=== PATIENT | female | born 1995 | race Caucasian/White ===

== ENCOUNTER → 2019-10-27 10:41 | Outpatient (BNVA) | payer SELFPAY | PROVIDERS: Family Provider Family Medicine; Visit Provider Family Medicine | DX: R39.9 Unspecified symptoms and signs involving the genitourinary system (principal); N30.91 Cystitis, unspecified with hematuria | CPT/HCPCS: 81003 ==

== ENCOUNTER → 2020-01-31 16:46 | Outpatient (BNVA) | payer SELFPAY | PROVIDERS: Family Provider Family Medicine; Visit Provider Nurse Practitioner Family | DX: R10.31 Right lower quadrant pain (principal); R10.2 Pelvic and perineal pain | CPT/HCPCS: 81000; 81001; 81025; 87491; 87591; 87661 ==

== ENCOUNTER → 2020-02-08 11:17 | Outpatient (BNVA) | payer SELFPAY | PROVIDERS: Family Provider Family Medicine; Visit Provider Nurse Practitioner | DX: A74.9 Chlamydial infection, unspecified (principal); T63.461D Toxic effect of venom of wasps, accidental (unintentional), subsequent encounter; Z20.2 Contact with and (suspected) exposure to infections with a predominantly sexual mode of transmission; N39.0 Urinary tract infection, site not specified | CPT/HCPCS: 81003; 87491; 87591 ==

== ENCOUNTER 2020-05-23 08:48 | Emergency (ER) | payer SELFPAY ==
[2020-05-23 09:02] VITALS: BP 112/74; PULSE 80; RESP 16; TEMP 36.6; O2SAT 97; BMI 22.8
[2020-05-23 09:06] VITALS: PULSE 79; RESP 16; O2SAT 96
--- NOTE | 2020-05-23 09:18 | PC.NURSE ---
Urine collected, labeled and sent to lab
[2020-05-23 09:22] LABS: HCG Qualitative Urine. Negative (Negative)
--- NOTE | 2020-05-23 09:25 | PC.NURSE ---
Pt placed in VF. Dr Gruber to see pt.
--- NOTE | 2020-05-23 09:38 | W.ED.GENADLT ---
HPI - General Adult General: Chief complaint: General Medical Stated complaint: POSS PREG/WANTS CHECKED Time Seen by Provider: 05/23/20 09:38 History of Present Illness: HPI narrative: 24-year-old female presents emergency room after having done multiple tests at home she got varying results and wants to come in to the emergency room to have a test done. She is also requesting ultrasound to confirm that she is or is not . She denies any abdominal pain or pelvic pain she just completed her period. She denies any fever sweats chills or respiratory symptoms. PFS ED PFSH: Medical History (Updated 05/23/20 @ 09:40 by Oliver Gruber DO) Wasp sting Social History Smoking and tobacco status: never smoked Alcohol intake: never Female Reproductive History: Date of last menstrual period: 05/18/20 Course Vital Signs: Vital signs: Vital Signs Temperature 97.8 F 05/23/20 09:02 Pulse Rate 79 05/23/20 09:06 Respiratory Rate 16 05/23/20 09:06 Blood Pressure 112/74 05/23/20 09:02 Pulse Oximetry 96 05/23/20 09:06 MDM - General Adult MDM Narrative: Medical decision making narrative: EGD is negative. Would not recommend an ultrasound as without a positive test and no pelvic symptoms whatsoever ultrasound will not tell us of anything significant. Recommend that she follow-up with her primary care doctor should she did not have a primary care doctor will case investigator get her set up with someone. Lab Data: Labs: Lab Results 05/23/20 Range/Units 09:12 HCG, Qual Negative (Negative) Discharge Plan Discharge Patient Disposition: Home Clinical Impression: Normal exam Condition: Stable Prescriptions: No Action lidocaine HCl [Xylocaine] 10 mg/mL (1 %) solution 1 ml IM ONCE Qty: 1 RF: 0 prednisone 10 mg tablet 30 mg PO DAILY 5 Days Qty: 15 RF: 0 norethindrone (contraceptive) [Melissa] 0.35 mg tablet 0.35 mg PO DAILY RF: 0 doxycycline hyclate 100 mg capsule 100 mg PO BID 7 Days Qty: 14 RF: 0 Discharge Orders: Discharge Order (Routine); Ordered 05/23/20 Ordered By: Oliver L Horstman Activity Restrictions/Additional Instructions: Case management will call to help you arrange a new primary care physician. Coding Level of Care Code ED Coin Wrapping Machine Operator for Mercedes Matthews
--- NOTE | 2020-05-23 14:14 | DCPLANNER ---
manager animal had message to speak with patient about getting established with a primary care physician. manager animal spoke with patient, and she stated that she does not have a primary care physician and that she does not have a physician, and does not have any insurance at this time. manager animal mailed patient both of the vice president financial applications to fill out and turn in. manager animal also sent patient director of casework business card, so that when patient wants to schedule a follow up appointment, that lead case manager will be happy to set patient up with a primary care.
== END 2020-05-23 09:47 | disposition home or self-care (01) ==
LOC: ER 09:43
PROVIDERS: Emergency Provider Family Medicine; Family Provider Family Medicine
DX: Z32.02 Encounter for pregnancy test, result negative (principal)
CPT/HCPCS: 12345; 81025; 99282

== ENCOUNTER → 2020-06-29 13:42 | Outpatient (BNVA) | payer MEDICAID, SELFPAY | PROVIDERS: Family Provider Family Medicine; Visit Provider Nurse Practitioner | DX: Z34.90 Encounter for supervision of normal pregnancy, unspecified, unspecified trimester (principal) | CPT/HCPCS: 81025 ==

== ENCOUNTER 2020-08-26 17:58 | Emergency (ER) | payer BC, MEDICAID, SELFPAY ==
[2020-08-26] VITALS (7 sets, daily range): BP systolic 98–113; BP diastolic 59–74; PULSE 84–118; RESP 15–16; TEMP 36.7; O2SAT 96–100; BMI 22.4
--- NOTE | 2020-08-26 18:56 | CTR_ITS ---
PROCEDURE INFORMATION: Exam: CT Head Without Contrast Exam date and time: 08/26/2020 7:01 PM Age: 25 years old Clinical indication: Pain; Headache not specified; Patient HX: 15 wks preg C/O occipital ECHEVARRIA x 2 days TECHNIQUE: Imaging protocol: Computed tomography of the head without contrast. Radiation optimization: All CT scans at this facility use at least one of these dose optimization techniques: automated exposure control; mA and/or kV adjustment per patient size (includes targeted exams where dose is matched to clinical indication); or iterative reconstruction. COMPARISON: No relevant prior studies available. RADIATION DOSE METRICS: Total DLP (mGy-cm): 692.06 FINDINGS: Brain: Unremarkable. No hemorrhage. No significant white matter disease. No edema. Cerebral ventricles: No ventriculomegaly. Bones/joints: Unremarkable. No acute fracture. Paranasal sinuses: Visualized sinuses are unremarkable. No fluid levels. Mastoid air cells: Unremarkable as visualized. No mastoid effusion. Soft tissues: Unremarkable. CT/CT head wo con* [id number] IMPRESSION: No acute intracranial abnormality demonstrated. Radiation Dose CTDIVOL = (mGy): DLP = 692.06 (mGy-cm)
[2020-08-26 19:10] LABS: Basophils % 0.4 %; Eosinophils % 0.4 %; Hematocrit 35.1 % (37.0-47.0); Hemoglobin 11.6 g/dL (11.5-15.3); Lymphocytes # 1.9 10^3/uL (0.8-4.8); Lymphocytes % 16.5 %; Mean Corpuscular Hemoglobin 28.2 pg (28.0-34.0); Mean Corpuscular Volume 85.2 fL (81-99); Mean Platelet Volume 10.4 fL (7.4-10.4); Monocytes # 0.6 10^3/uL (0.2-0.9); Neutrophils # 8.74 10^3/uL (1.8-7.7); Neutrophils % 77.3 %; Nucleated Red Blood Cells % 0 %; Platelet Count 208 10^3/cmm (130-400); Red Blood Count 4.12 10^6/uL (4.1-5.3); Red Cell Distribution Width 12.5 % (12.1-15.1); White Blood Count 11.3 10^3/uL (4.0-10.0)
[2020-08-26 19:34] LABS: Procalcitonin 0.03 ng/mL (0-0.5)
[2020-08-26] MEDS: metoclopramide 5 mg/mL SDV 2 mL 10 MG IVP (19:35)
[2020-08-26] MEDS: ondansetron 2 mg/ML SDV 2 mL 4 MG IVP (19:35)
[2020-08-26] MEDS: fentaNYL 50 mcg/mL INJ 2mL IVP (19:36)
[2020-08-26] MEDS: diphenhydrAMINE 50 mg/mL SDV 1mL 25 MG IVP (19:36)
[2020-08-26] MEDS: sodium chloride 0.9% 1,000 ML 999 ML IV ×2 (19:37→20:47)
[2020-08-26 19:58] LABS: Alanine Aminotransferase 9 U/L (0-33); Albumin Level 3.6 g/dL (3.5-5.2); Alkaline Phosphatase 45 IU/L (35-105); Anion Gap 13.6 (5-19); Aspartate Amino Transferase 10 U/L (0-32); Blood Urea Nitrogen 9 mg/dL (6-20); C Reactive Protein 3.8 mg/L (0.0-4.9); Calcium 8.8 mg/dL (8.5-10.5); Carbon Dioxide 23 mmol/L (22-29); Chloride 104 mmol/L (98-107); Globulin 3.2 g/dL (1.3-4.6); Glomerular Filtration Rate 194.5 mL/min (90-130); Glucose 81 mg/dL (65-115); Lipase 15 U/L (13-60); Osmolality Calculated 282 mOsm/kg (285-295); Potassium 3.6 mmol/L (3.5-5.1); Sodium 137 mmol/L (136-145); Total Bilirubin 0.2 mg/dL (0.15-1.2); Total Protein 6.8 g/dL (6.6-8.7)
[2020-08-26 20:09] LABS: Bilirubin Urine Neg (Negative); Blood Urine Neg (Negative); Glucose Urine UA Norm (Normal); Ketones Urine 1+ (Negative); Nitrate Urine Negative (Negative); Protein Urine Neg (Negative); Specific Gravity, Urine 1.025 (1.005-1.030); Urine Appearance SL Hazy (CLEAR); Urine Color Yellow (Yellow); Urobilinogen Urine Norm (Negative); pH Urine 5 (5-7)
[2020-08-26 20:10] LABS: Add Urine Microscopic? YES; Leukocyte Esterase Urine 1+ (Negative)
[2020-08-26 20:13] LABS: RBC Urine 0-4 /hpf (0-2); Squamous Epithelial Cell Urine 55-80 /hpf (0-5); WBC Urine 15-25 /hpf (0-5)
[2020-08-26 20:14] LABS: Add Urine Culture? No; Bacteria Urine 2+ /hpf
--- NOTE | 2020-08-26 21:05 | W.ED.NAVMDI ---
HPI - Nausea/Vomiting/Diarrhea General: Chief complaint: Nausea/Vomiting/Diarrhea Stated complaint: 15wks preg/nausea/headache Time Seen by Provider: 08/26/20 18:22 History of Present Illness: HPI Narrative: 25-year-old female, at 13 weeks, presents with vomiting with nausea and headache for the past day or so. She does not usually get headaches. She is not been holding down water or crackers. She denies any fever, cough, shortness of breath. Denies any bleeding or discharge. She states that she has been cramping some. MD elicited complaint: nausea, vomiting and other Onset (ago): day(s) Description of vomiting: watery Associated nausea: Yes Associated abdominal pain: No Quality: cramping Relieving factors: none Associated symtoms: Reports dizziness, headache(s) and nausea; Denies chest pain, cough, fevers/chills, palpitations or short of breath Review of Systems Const: Denies: fever(s) or chills Card: Denies: chest pain or palpitations Resp: Denies: dyspnea GI: Reports: nausea and vomiting; Denies: diarrhea Neuro: Reports: headache(s) and dizziness [facility] ED PFSH: Medical History (Updated 08/26/20 @ 22:36 by Lupillo Jennings DO) Wasp sting Social History Smoking and tobacco status: never smoked Alcohol intake: never Female Reproductive History: Date of last menstrual period: 05/18/20 Physical Exam Const: GENERAL APPEARANCE: well developed ORIENTATION/CONSCIOUSNESS: Yes oriented to person, Yes oriented to place and Yes oriented to time HENMT: COMMON NORMALS: normocephalic, external ears normal and Normal external nose present HEAD & SCALP: normocephalic FACE & SINUS: normal facial exam NOSE: Normal external nose present EXTERNAL EAR: Yes external ears normal Eye: COMMON NORMALS: Equal, round and reactive pupils present, EOMs intact bilaterally and conjunctivae normal EYELID: eyelids normal CONJUNCTIVA: Yes conjunctivae normal PUPIL: Yes Equal, round and reactive pupils present Chest: COMMONS NORMALS: normal inspection of the chest CHEST: No tenderness Resp: COMMON NORMALS: clear to auscultation bilaterally EFFORT & INSPECTION: No tachypneic, No respiratory distress, No retractions, No uses accessory muscles and No tracheal deviation AUSCULTATION: clear to auscultation bilaterally, no rhonchi, no wheezes and lung sounds not diminished Cardio: COMMON NORMALS: regular rate and regular rhythm RATE: regular rate RHYTHM: regular rhythm HEART SOUNDS: no murmurs PERIPHERAL PULSES: radial pulses present GI: INSPECTION: No abdominal distension AUSCULTATION: No Hyperactive bowel sounds present and No Hypoactive bowel sounds present PALPATION: No Guarding due to palpation present (GI) and No Rigid due to palpation PERCUSSION: no dullness to percussion and no tympanic to percussion Neuro: SENSORIUM/ORIENTATION: Yes oriented to person, Yes oriented to place and Yes oriented to time Psych: COMMON NORMALS: mental status grossly normal Skin: COMMON NORMALS: no rashes or lesions noted GENERAL SKIN EXAM: no rashes or lesions noted Course Vital Signs: Vital signs: Vital Signs Temperature 98.1 F 08/26/20 18:04 Pulse Rate 89 08/26/20 20:50 Respiratory Rate 16 08/26/20 19:36 Blood Pressure 100/72 08/26/20 21:49 Pulse Oximetry 100 08/26/20 21:49 MDM - Nausea/Vomiting/Diarrhea MDM Narrative: Medical decision making narrative: 25-year-old female, 13 weeks , presents with headache, nausea, vomiting. She is a white blood cell count of 11.3. Her hemoglobin is 11.6. Electrolytes are normal. She has a urinary tract infection on urinalysis. She has been treated with IV fluids and IV Rocephin here. She was treated for headache as well, which is resolved now after medication and fluid bolus. She will be treated for urinary tract infection along with some antiemetics on discharge. Lab Data: Labs: Lab Results 08/26/20 08/26/20 08/26/20 Range/Units 19:00 19:00 19:00 WBC 11.3 H (4.0-10.0) 10^3/ uL RBC 4.12 (4.1-5.3) 10^6/u L Hgb 11.6 (11.5-15.3) g/dL Hct 35.1 L (37.0-47.0) % MCV 85.2 (81-99) fL MCH 28.2 (28.0-34.0) pg MCHC 33.0 (30.0-36.0) g/dL RDW 12.5 (12.1-15.1) % Plt Count 208 (130-400) 10^3/c mm MPV 10.4 (7.4-10.4) fL Neut % (Auto) 77.3 % Lymph % (Auto) 16.5 % [place] % (Auto) 5.0 % Eos % (Auto) 0.4 % Baso % (Auto) 0.4 % Neut # (Auto) 8.74 H (1.8-7.7) 10^3/u L Lymph # (Auto) 1.9 (0.8-4.8) 10^3/u L [place] # (Auto) 0.6 (0.2-0.9) 10^3/u L Eos # (Auto) 0.0 (0.0-0.8) 10^3/u L Baso # (Auto) 0.0 (0.0-0.1) 10^3/u L Nucleated RBC % (a uto) 0 % Nucleated RBCs # 0.0 /100WBC Sodium 137 (136-145) mmol/L Potassium 3.6 (3.5-5.1) mmol/L Chloride 104 (98-107) mmol/L Carbon Dioxide 23 (22-29) mmol/L Anion Gap 13.6 (5-19) BUN 9 (6-20) mg/dL Creatinine 0.4 L (0.5-0.9) mg/dL GFR Calculation 194.5 H (90-130) mL/min Glucose 81 (65-115) mg/dL Calculated Osmolal ity 282 L (285-295) mOsm/k g Calcium 8.8 (8.5-10.5) mg/dL Total Bilirubin 0.2 (0.15-1.2) mg/dL AST 10 (0-32) U/L ALT 9 (0-33) U/L Alkaline Phosphata se 45 (35-105) IU/L C-Reactive Protein 3.8 (0.0-4.9) mg/L Total Protein 6.8 (6.6-8.7) g/dL Albumin 3.6 (3.5-5.2) g/dL Globulin 3.2 (1.3-4.6) g/dL Lipase 15 (13-60) U/L Procalcitonin 0.03 (0-0.5) ng/mL [place] , [place] [address].00 mIU/mL Urine Color (Yellow) Urine Appearance (CLEAR) Urine pH (5-7) Ur Specific Gravit y (1.005-1.030) Urine Protein (Negative) Urine Glucose (UA) (Normal) Urine Ketones (Negative) Urine Blood (Negative) Urine Nitrate (Negative) Urine Bilirubin (Negative) Urine Urobilinogen (Negative) mg/dL Ur Leukocyte Shabnam ase (Negative) Urine RBC (0-2) /hpf Urine WBC (0-5) /hpf Ur Squamous Epith Cells (0-5) /hpf Amorphous Sediment Urine Bacteria (NONE) /hpf 08/26/20 Range/Units 19:50 WBC (4.0-10.0) 10^3/ uL RBC (4.1-5.3) 10^6/u L Hgb (11.5-15.3) g/dL Hct (37.0-47.0) % MCV (81-99) fL MCH (28.0-34.0) pg MCHC (30.0-36.0) g/dL RDW (12.1-15.1) % Plt Count (130-400) 10^3/c mm MPV (7.4-10.4) fL Neut % (Auto) % Lymph % (Auto) % [place] % (Auto) % Eos % (Auto) % Baso % (Auto) % Neut # (Auto) (1.8-7.7) 10^3/u L Lymph # (Auto) (0.8-4.8) 10^3/u L [place] # (Auto) (0.2-0.9) 10^3/u L Eos # (Auto) (0.0-0.8) 10^3/u L Baso # (Auto) (0.0-0.1) 10^3/u L Nucleated RBC % (a uto) % Nucleated RBCs # /100WBC Sodium (136-145) mmol/L Potassium (3.5-5.1) mmol/L Chloride (98-107) mmol/L Carbon Dioxide (22-29) mmol/L Anion Gap (5-19) BUN (6-20) mg/dL Creatinine (0.5-0.9) mg/dL GFR Calculation (90-130) mL/min Glucose (65-115) mg/dL Calculated Osmolal ity (285-295) mOsm/k g Calcium (8.5-10.5) mg/dL Total Bilirubin (0.15-1.2) mg/dL AST (0-32) U/L ALT (0-33) U/L Alkaline Phosphata se (35-105) IU/L C-Reactive Protein (0.0-4.9) mg/L Total Protein (6.6-8.7) g/dL Albumin (3.5-5.2) g/dL Globulin (1.3-4.6) g/dL Lipase (13-60) U/L Procalcitonin (0-0.5) ng/mL Ser , [place] i-Qnt mIU/mL Urine Color Yellow (Yellow) Urine Appearance Sl hazy (CLEAR) Urine pH 5 (5-7) Ur Specific Gravit y 1.025 (1.005-1.030) Urine Protein Neg (Negative) Urine Glucose (UA) Norm (Normal) Urine Ketones 1+ H (Negative) Urine Blood Neg (Negative) Urine Nitrate Negative (Negative) Urine Bilirubin Neg (Negative) Urine Urobilinogen Norm (Negative) mg/dL Ur Leukocyte Shabnam ase 1+ H (Negative) Urine RBC 0-4 H (0-2) /hpf Urine WBC 15-25 H (0-5) /hpf Ur Squamous Epith Cells 55-80 H (0-5) /hpf Amorphous Sediment Not Reportable Urine Bacteria 2+ H (NONE) /hpf Discharge Plan Discharge Patient Disposition: Home Clinical Impression: Urinary tract infection affecting Condition: Stable Prescriptions: New cefdinir 300 mg capsule 300 mg PO BID 7 Days Qty: 14 RF: 0 Reglan 10 mg tablet 10 mg PO Q6H PRN (Reason: nausea and vomiting) Qty: 10 RF: 0 No Action lidocaine HCl [Xylocaine] 10 mg/mL (1 %) solution 1 ml IM ONCE Qty: 1 RF: 0 Discharge Orders: Discharge ED (Routine); Ordered 08/26/20 Ordered By: Lupillo Jennings Referrals: Violet Reid MD [Physician] - 4-7 days Discharge Diet: Advance as tolerated and Clear Liquid Discharge Activity: Increase activity as tolerated Activity Restrictions/Additional Instructions: Return to the ER for continued vomiting of liquids or medications, fever greater than 100 despite 1-2 doses of antibiotics, increasing pain, vaginal bleeding, other concerning symptoms. Follow a liquid diet for the next 12 hours, then increase as tolerated. Take the nausea medication scheduled every 6 hours for 24 hours, then as needed. Antibiotics as directed. Coding Level of Care Code ED Balance Screwhead Polisher for Mercedes Fwd Exam Comprehensive
[2020-08-26] MEDS: cefTRIAXone 1,000 MG in sodium chloride 0.9% (plus) 50 ML 100 MG IV (21:11)
== END 2020-08-26 22:51 | disposition home or self-care (01) ==
PROVIDERS: Emergency Provider Emergency Medicine
DX: O23.41 Unspecified infection of urinary tract in pregnancy, first trimester (principal); Z3A.13 13 weeks gestation of pregnancy
CPT/HCPCS: 12345; 70450; 80053; 81001; 83690; 84145; 84702; 85025; 86140; 96361; 96365; 96375; 99283; J0696; J1200; J2405; J2765; J3010; J7030

== ENCOUNTER 2020-09-05 10:33 | Emergency (ER) | payer BC, MEDICAID, SELFPAY ==
--- NOTE | 2020-09-05 10:40 | ED_ITS ---
HPI - Nausea/Vomiting/Diarrhea General: Chief complaint: Nausea/Vomiting/Diarrhea Stated complaint: N/V Time Seen by Provider: 09/05/20 10:35 Source: patient Mode of arrival: ambulatory Limitations: no limitations History of Present Illness: HPI Narrative: Patient is a 25-year-old female at approximately 17 weeks here for complaints of nausea and vomiting that began this morning. Patient tells me she is vomited countless times. She states when the vomiting first started she noticed a small amount of blood in her vomit but that has since cleared and now reports her emesis is yellow in color. She was reporting some lower back pain and lower abdominal cramping. She states when the cramping occurs it gives her a sensation that she needs to defecate. She has not noticed any dysuria, frequency, urgency. She does tell me she was seen here at our facility recently and diagnosed with a UTI-she is still on antibiotics for this. Patient has not had any vaginal bleeding or vaginal discharge. She has received routine OB care through Dr. Reid. elicited complaint: nausea, vomiting and abdominal pain Associated nausea: Yes Associated abdominal pain: Yes Location of pain: Suprapubic and Pelvis Pain consistency: constant Quality: cramping Exacerbating factors: eating Relieving factors: none Associated symtoms: Reports nausea; Denies change in vision, chest pain, dysuria, fatigue, headache(s), malaise, palpitations or syncope Review of Systems Const: Denies: fever(s), chills, body aches, fatigue or malaise Eyes: Denies: change in vision or blurry vision Card: Denies: chest pain, palpitations, irregular heart rhythm, lightheadedness, syncope or dyspnea on exertion Resp: Denies: dyspnea, productive cough or pain on inspiration GI: Reports: abdominal pain, nausea and vomiting; Denies: heartburn, diarrhea, change in bowel habits, change in stool character, hematochezia or melena : Denies: flank pain, difficulty voiding, dysuria, urinary frequency, urinary urgency or urinary hesitancy Musc: Denies: neck pain, back pain, extremity pain, extremity swelling, joint pain or joint swelling Skin/Breast: Denies: rash Neuro: Denies: headache(s) PFS ED PFSH: Medical History (Updated 09/05/20 @ 13:11 by BRYCE Rebolledo) Wasp sting Social History Smoking and tobacco status: never smoked Alcohol intake: never Female Reproductive History: Date of last menstrual period: 05/18/20 Physical Exam Const: COMMON NORMALS: average body habitus, patient oriented x3, no limitations, healthy appearing, alert and well nourished GENERAL APPEARANCE: cooperative and in distress (actively vomiting ) ORIENTATION/CONSCIOUSNESS: Yes awake, Yes oriented to person, Yes oriented to place and Yes oriented to time Resp: COMMON NORMALS: normal respiratory effort and clear to auscultation bilaterally AUSCULTATION: clear to auscultation bilaterally Cardio: COMMON NORMALS: regular rhythm RATE: tachycardic RHYTHM: regular rhythm GI: COMMON NORMALS: Normal to inspection, nondistended, normoactive bowel sounds present, Soft to palpation, No hepatosplenomegaly present and no masses INSPECTION: Yes gravid abdomen PALPATION: Yes Soft to palpation, Yes Tenderness to palpation present (GI) (mild tenderness to lower abdomen/pelvis) and Yes No hepatosplenomegaly present : COMMON NORMALS: Yes no CVA tenderness BLADDER/KIDNEY EXAM: Yes no CVA tenderness Back/Pelvis: COMMON NORMALS: no CVA tenderness OTHER: across lower back Extremity: GENERAL: Yes normal exam except as noted Neuro: COMMON NORMALS: patient oriented x3 SENSORIUM/ORIENTATION: Yes alert, Yes oriented to person, Yes oriented to place and Yes oriented to time Skin: COMMON NORMALS: no rashes or lesions noted GENERAL SKIN EXAM: no rashes or lesions noted Course Vital Signs: Vital signs: Vital Signs Temperature 98.4 F 09/05/20 10:41 Pulse Rate 120 H 09/05/20 10:41 Respiratory Rate 16 09/05/20 10:41 Blood Pressure 107/81 09/05/20 10:41 Pulse Oximetry 98 09/05/20 10:41 MDM - Nausea/Vomiting/Diarrhea MDM Narrative: Medical decision making narrative: Patient has not had any further episodes of vomiting after IV medications. She was given a liter of fluids. Patient does have a white count of 17.3. This is most likely a result from her vomiting all morning. CHEM panel is non-concerning. UA does not look concerning for UTI. UA from her last visit was not culture due to high contamination. Patient was able to hold down food/fluids here. Initially tachycardic upon arrival but she is currently resting comfortably with HR in the 90s. She has a prescription for the Reglan that she recently filled from her last visit. Recommend she take that at home for her nausea and vomiting. Recommend she contact Dr. Reid today or tomorrow for further instructions and follow-up. Return to ED precautions given. Lab Data: Labs: Lab Results 09/05/20 09/05/20 09/05/20 Range/Units 10:53 11:14 11:14 WBC 17.3 H (4.0-10.0) 10^3/ uL RBC 4.46 (4.1-5.3) 10^6/u L Hgb 12.7 (11.5-15.3) g/dL Hct 37.6 (37.0-47.0) % MCV 84.3 (81-99) fL MCH 28.5 (28.0-34.0) pg MCHC 33.8 (30.0-36.0) g/dL RDW 12.4 (12.1-15.1) % Plt Count 264 (130-400) 10^3/c mm MPV 10.3 (7.4-10.4) fL Neut % (Auto) 85.6 % Lymph % (Auto) 9.6 % [place] % (Auto) 3.9 % Eos % (Auto) 0.1 % Baso % (Auto) 0.2 % Neut # (Auto) 14.84 H (1.8-7.7) 10^3/u L Lymph # (Auto) 1.7 (0.8-4.8) 10^3/u L [place] # (Auto) 0.7 (0.2-0.9) 10^3/u L Eos # (Auto) 0.0 (0.0-0.8) 10^3/u L Baso # (Auto) 0.0 (0.0-0.1) 10^3/u L Nucleated RBC % (a uto) 0 % Nucleated RBCs # 0.0 /100WBC Sodium 136 (136-145) mmol/L Potassium 3.9 (3.5-5.1) mmol/L Chloride 105 (98-107) mmol/L Carbon Dioxide 20 L (22-29) mmol/L Anion Gap 14.9 (5-19) BUN 10 (6-20) mg/dL Creatinine 0.4 L (0.5-0.9) mg/dL GFR Calculation 194.5 H (90-130) mL/min Glucose 103 (65-115) mg/dL Calculated Osmolal ity 281 L (285-295) mOsm/k g Lactic Acid (0.5-2.2) mmol/L Calcium 9.0 (8.5-10.5) mg/dL Total Bilirubin 0.2 (0.15-1.2) mg/dL AST 13 (0-32) U/L ALT 7 (0-33) U/L Alkaline Phosphata se 54 (35-105) IU/L Total Protein 7.5 (6.6-8.7) g/dL Albumin 4.1 (3.5-5.2) g/dL Globulin 3.4 (1.3-4.6) g/dL Lipase 21 (13-60) U/L Urine Color Yellow (Yellow) Urine Appearance Cloudy (CLEAR) Urine pH 5 (5-7) Ur Specific Gravit y 1.030 (1.005-1.030) Urine Protein Neg (Negative) Urine Glucose (UA) Norm (Normal) Urine Ketones Negative (Negative) Urine Blood Neg (Negative) Urine Nitrate Negative (Negative) Urine Bilirubin 1+ H (Negative) Urine Urobilinogen Norm (Negative) mg/dL Ur Leukocyte Shabnam ase Negative (Negative) Urine RBC None (0-2) /hpf Urine WBC 0-4 H (0-5) /hpf Ur Squamous Epith Cells 0-4 H (0-5) /hpf Amorphous Sediment 4+ /hpf Urine Bacteria 2+ H (NONE) /hpf 09/05/20 Range/Units 11:14 WBC (4.0-10.0) 10^3/ uL RBC (4.1-5.3) 10^6/u L Hgb (11.5-15.3) g/dL Hct (37.0-47.0) % MCV (81-99) fL MCH (28.0-34.0) pg MCHC (30.0-36.0) g/dL RDW (12.1-15.1) % Plt Count (130-400) 10^3/c mm MPV (7.4-10.4) fL Neut % (Auto) % Lymph % (Auto) % [place] % (Auto) % Eos % (Auto) % Baso % (Auto) % Neut # (Auto) (1.8-7.7) 10^3/u L Lymph # (Auto) (0.8-4.8) 10^3/u L [place] # (Auto) (0.2-0.9) 10^3/u L Eos # (Auto) (0.0-0.8) 10^3/u L Baso # (Auto) (0.0-0.1) 10^3/u L Nucleated RBC % (a uto) % Nucleated RBCs # /100WBC Sodium (136-145) mmol/L Potassium (3.5-5.1) mmol/L Chloride (98-107) mmol/L Carbon Dioxide (22-29) mmol/L Anion Gap (5-19) BUN (6-20) mg/dL Creatinine (0.5-0.9) mg/dL GFR Calculation (90-130) mL/min Glucose (65-115) mg/dL Calculated Osmolal ity (285-295) mOsm/k g Lactic Acid 1.0 (0.5-2.2) mmol/L Calcium (8.5-10.5) mg/dL Total Bilirubin (0.15-1.2) mg/dL AST (0-32) U/L ALT (0-33) U/L Alkaline Phosphata se (35-105) IU/L Total Protein (6.6-8.7) g/dL Albumin (3.5-5.2) g/dL Globulin (1.3-4.6) g/dL Lipase (13-60) U/L Urine Color (Yellow) Urine Appearance (CLEAR) Urine pH (5-7) Ur Specific Gravit y (1.005-1.030) Urine Protein (Negative) Urine Glucose (UA) (Normal) Urine Ketones (Negative) Urine Blood (Negative) Urine Nitrate (Negative) Urine Bilirubin (Negative) Urine Urobilinogen (Negative) mg/dL Ur Leukocyte Shabnam ase (Negative) Urine RBC (0-2) /hpf Urine WBC (0-5) /hpf Ur Squamous Epith Cells (0-5) /hpf Amorphous Sediment /hpf Urine Bacteria (NONE) /hpf Imaging Data^: US OB: Radiologist's impression: [address] [place] [address] Ultrasound Report Signed Patient: Jaqulein Do #: [id number] : 1995Acct#:[id number] Age/Sex: 25 / FADM Date: 09/05/20 Loc: ERRoom/Bed: Attending Dr: Ordering Provider/Ordering MD: Ivy Aguilar Date of Service: 09/05/20 Procedure(s): US OB limited [id number] Accession Number(s): [id number] Report Number: [id number] WS: [id number] ULTRASOUND EARLY TECHNIQUE: Transabdominal sonography of the pelvis was performed. CLINICAL INFORMATION: lower abdominal cramping LMP: 05/08/2020 Beta hCG: Unknown. COMPARISON: None. FINDINGS: Cervix measures 3.7 cm UTERUS AND GESTATIONAL SAC Intrauterine gestations: Single intrauterine gestation with cephalic presentation. Placenta is posterior. Estimated gestational age: 16w5d with estimated delivery February 15, 2021 heart motion: 138 BPM. BDP: 3.5 cm = 16w5d HC: 13.0 cm = 16w5d OVARIES Right ovary: Normal. Left ovary: Normal. FREE FLUID None. US/US OB limited [id number] IMPRESSION: 1. Single live intrauterine . 2. Estimated gestational age; 16w5d estimated date of delivery February 15, 2021 3. Cervix is closed measuring 3.7 cm Dictated By:Liam Cueto MD Signed By:Liam Cueto MDSigned Date/Time:09/05/20 1314 DD/ 1310 Discharge Plan Discharge Patient Disposition: Home Clinical Impression: Nausea and vomiting during Condition: Stable Prescriptions: No Action lidocaine HCl [Xylocaine] 10 mg/mL (1 %) solution 1 ml IM ONCE Qty: 1 RF: 0 Reglan 10 mg tablet 10 mg PO Q6H PRN (Reason: nausea and vomiting) Qty: 10 RF: 0 Discharge Orders: Discharge ED (Routine); Ordered 09/05/20 Ordered By: Ivy Aguilar Patient Instructions: Acute Nausea and Vomiting (ED) Activity Restrictions/Additional Instructions: As discussed you may use the prescription for Reglan from your last visit to help with your nausea and vomiting. You may also try [id number] meclizine or diphenhydramine. Please contact your OB doctor today or tomorrow to discuss further follow-up especially if symptoms persist. Return to the emergency department for worsening vomiting, abdominal pain, vaginal discharge/bleeding, abdominal cramping, fevers, or any other concerns you may have. Coding Level of Care Code ED Supply Chain Systems Manager for [employer] Fwd Exam Detailed
[2020-09-05 10:41] VITALS: BP 107/81; PULSE 120; RESP 16; TEMP 36.9; O2SAT 98; BMI 22.4
[2020-09-05] MEDS: sodium chloride 0.9% 1,000 ML 999 ML IV (11:19)
--- NOTE | 2020-09-05 11:20 | US_ITS ---
WS: [id number] ULTRASOUND EARLY TECHNIQUE: Transabdominal sonography of the pelvis was performed. CLINICAL INFORMATION: lower abdominal cramping LMP: 05/08/2020 Beta hCG: Unknown. COMPARISON: None. FINDINGS: Cervix measures 3.7 cm UTERUS AND GESTATIONAL SAC Intrauterine gestations: Single intrauterine gestation with cephalic presentation. Placenta is posterior. Estimated gestational age: 16w5d with estimated delivery February 15, 2021 heart motion: 138 BPM. BDP: 3.5 cm = 16w5d HC: 13.0 cm = 16w5d OVARIES Right ovary: Normal. Left ovary: Normal. FREE FLUID None. US/US OB limited [id number] IMPRESSION: 1. Single live intrauterine . 2. Estimated gestational age; 16w5d estimated date of delivery February 15, 2021 3. Cervix is closed measuring 3.7 cm
[2020-09-05 11:23] LABS: Basophils % 0.2 %; Eosinophils % 0.1 %; Hematocrit 37.6 % (37.0-47.0); Hemoglobin 12.7 g/dL (11.5-15.3); Lymphocytes # 1.7 10^3/uL (0.8-4.8); Lymphocytes % 9.6 %; Mean Corpuscular HGB Conc 33.8 g/dL (30.0-36.0); Mean Corpuscular Hemoglobin 28.5 pg (28.0-34.0); Mean Corpuscular Volume 84.3 fL (81-99); Mean Platelet Volume 10.3 fL (7.4-10.4); Monocytes # 0.7 10^3/uL (0.2-0.9); Monocytes % 3.9 %; Neutrophils # 14.84 10^3/uL (1.8-7.7); Neutrophils % 85.6 %; Nucleated Red Blood Cells % 0 %; Platelet Count 264 10^3/cmm (130-400); Red Blood Count 4.46 10^6/uL (4.1-5.3); Red Cell Distribution Width 12.4 % (12.1-15.1); White Blood Count 17.3 10^3/uL (4.0-10.0)
[2020-09-05 11:35] LABS: Glucose Urine UA Norm (Normal); Ketones Urine Negative (Negative); Protein Urine Neg (Negative); Urine Appearance Cloudy (CLEAR); Urine Color Yellow (Yellow); pH Urine 5 (5-7)
[2020-09-05 11:36] LABS: Add Urine Microscopic? YES; Bilirubin Urine 1+ (Negative); Blood Urine Neg (Negative); Leukocyte Esterase Urine Negative (Negative); Nitrate Urine Negative (Negative); Squamous Epithelial Cell Urine 0-4 /hpf (0-5); Urobilinogen Urine Norm (Negative); WBC Urine 0-4 /hpf (0-5)
[2020-09-05 11:37] LABS: Add Urine Culture? No; Amorphous Sediment Urine 4+ /hpf; Bacteria Urine 2+ /hpf
[2020-09-05] MEDS: metoclopramide 5 mg/mL SDV 2 mL 10 MG IVP (11:37)
[2020-09-05] MEDS: diphenhydrAMINE 50 mg/mL SDV 1mL 25 MG IVP (11:37)
[2020-09-05 11:48] LABS: Alanine Aminotransferase 7 U/L (0-33); Albumin Level 4.1 g/dL (3.5-5.2); Alkaline Phosphatase 54 IU/L (35-105); Aspartate Amino Transferase 13 U/L (0-32); Blood Urea Nitrogen 10 mg/dL (6-20); Carbon Dioxide 20 mmol/L (22-29); Chloride 105 mmol/L (98-107); Globulin 3.4 g/dL (1.3-4.6); Glomerular Filtration Rate 194.5 mL/min (90-130); Glucose 103 mg/dL (65-115); Lipase 21 U/L (13-60); Osmolality Calculated 281 mOsm/kg (285-295); Sodium 136 mmol/L (136-145); Total Bilirubin 0.2 mg/dL (0.15-1.2); Total Protein 7.5 g/dL (6.6-8.7)
[2020-09-05 12:04] LABS: Anion Gap 14.9 (5-19); Potassium 3.9 mmol/L (3.5-5.1)
[2020-09-05 13:29] VITALS: BP 104/62; PULSE 111; RESP 18; O2SAT 97
== END 2020-09-05 13:31 | disposition home or self-care (01) ==
PROVIDERS: Emergency Provider Physician Assistant
DX: O26.892 Other specified pregnancy related conditions, second trimester (principal); R11.2 Nausea with vomiting, unspecified; Z3A.17 17 weeks gestation of pregnancy
CPT/HCPCS: 12345; 76815; 80053; 81001; 83605; 83690; 85025; 96361; 96374; 96375; 99282; 99283; J1200; J2765; J7030

== ENCOUNTER 2021-01-09 13:27 | Outpatient (CLI) | payer BC, MEDICAID, SELFPAY ==
[2021-01-09 13:40] VITALS: BP 107/64; PULSE 100
== END 2021-01-09 14:13 | disposition home or self-care (01) ==
LOC: OPOB 13:31 → OBGYN 13:33
PROVIDERS: Visit Provider Family Medicine
DX: O26.899 Other specified pregnancy related conditions, unspecified trimester (principal); Z3A.00 Weeks of gestation of pregnancy not specified; R10.2 Pelvic and perineal pain
CPT/HCPCS: 59025; 99211

== ENCOUNTER 2021-02-13 05:50 | Inpatient (IN) | payer BC, MEDICAID, SELFPAY ==
[2021-02-13] VITALS (77 sets, daily range): BP systolic 85–130; BP diastolic 52–87; PULSE 71–109; RESP 15–17; TEMP 36.1–37.1; O2SAT 99–100; BMI 28.7
[2021-02-13 06:43] LABS: Basophils % 0.3 %; Eosinophils # 0.1 10^3/uL (0.0-0.8); Eosinophils % 0.6 %; Hematocrit 31.1 % (37.0-47.0); Hemoglobin 9.4 g/dL (11.5-15.3); Lymphocytes # 2.7 10^3/uL (0.8-4.8); Lymphocytes % 24.5 %; Mean Corpuscular HGB Conc 30.2 g/dL (30.0-36.0); Mean Corpuscular Hemoglobin 22.9 pg (28.0-34.0); Mean Corpuscular Volume 75.7 fL (81-99); Mean Platelet Volume 10.9 fL (7.4-10.4); Monocytes # 0.7 10^3/uL (0.2-0.9); Monocytes % 6.3 %; Neutrophils # 7.47 10^3/uL (1.8-7.7); Neutrophils % 67.4 %; Nucleated Red Blood Cells % 0 %; Platelet Count 214 10^3/cmm (130-400); Red Blood Count 4.11 10^6/uL (4.1-5.3); Red Cell Distribution Width 13.4 % (12.1-15.1); White Blood Count 11.1 10^3/uL (4.0-10.0)
[2021-02-13] MEDS: dextrose 5%-lactated ringers 1,000 ML 125 ML IV ×2 (06:43→14:40)
[2021-02-13] MEDS: oxytocin 30 UNIT/500 ML BAG IV (06:59)
[2021-02-13] MEDS: lactated ringers 1,000 ML 999 ML IV ×2 (08:38→09:44)
--- NOTE | 2021-02-13 09:49 | ANES.PREANE2 ---
Pre-Anesthetic Assessment Pre-Anesthetic Assessment: Height/Weight: Height 1.55 m Weight 68.946 kg Temp Pulse Resp BP Pulse Ox 97.5 F L 81 15 110/70 99 02/13/21 07:51 02/13/21 09:44 02/13/21 07:38 02/13/21 09:44 02/13/21 09:34 Preop Diagnosis: iup Proposed Procedure: epidural Familial anesthetic complications: none Was Beta Tyler taken within 24 hours: N/A Was Clonidine taken within 24 hours: N/A Last intake: ice chips during exam Social: Social History: No alcohol and No tobacco Exam: Pre-Anes Outpt Exam: alert, oriented x 3, clear to auscultation bilaterally and regular rate & rhythm Airway: Cervical ROM: WNL MP: 2 Dentition: Full Anesthetic Plan: ASA status: 2 Anesthesia: Regional (specify below) Risk of > 500 ml blood loss (7ml/kg in children): Yes, adequate IV access and fluids planned Meds/Allergies Current Medications: Current Medications Generic Name Dose Route Start Last Admin Trade Name Freq PRN Reason Stop Dose Admin Lactated Ringer's 1,000 mls @ 999 m ls/hr 02/13/21 06:10 02/13/21 09:44 Lactated Ringers IV 999 mls/hr .Q1H1M PRN Administration Per L&D Rescitati on Protocol Dextrose/Lactated Ringer's 1,000 mls @ 125 m ls/hr 02/13/21 06:15 02/13/21 08:43 Dextrose 5%-Lact ated Ringers IV Infused .Q8H DELROY Infusion Oxytocin 30 unit in 500 ml s @ 1 mls/hr 02/13/21 06:15 02/13/21 08:30 Pitocin IV 12 milliunit/min .Q24H DELROY 12 mls/hr Titration Protocol 1 MILLIUNIT/MIN Lactated Ringer's 1,000 mls @ 999 m ls/hr 02/13/21 07:39 02/13/21 08:38 Lactated Ringers IV 999 mls/hr .Q1H1M PRN Administration See label comment s PFSH Anesthesia PFSH: Medical History (Updated 09/13/20 @ 00:00 by ) Wasp sting Social History Smoking and tobacco status: never smoked Alcohol intake: never Female Reproductive History: Date of last menstrual period: 05/18/20 : 3 Data Anesthesia CBC & Chem 7: 02/13/21 06:33 Other Labs: Laboratory Results - last 48 hr 02/13/21 06:33 WBC 11.1 H RBC 4.11 Hgb 9.4 L Hct 31.1 L MCV 75.7 L MCH 22.9 L MCHC 30.2 RDW 13.4 Plt Count 214 MPV 10.9 H Neut % (Auto) 67.4 Lymph % (Auto) 24.5 [place] % (Auto) 6.3 Eos % (Auto) 0.6 Baso % (Auto) 0.3 Neut # (Auto) 7.47 Lymph # (Auto) 2.7 [place] # (Auto) 0.7 Eos # (Auto) 0.1 Baso # (Auto) 0.0 Nucleated RBC % (auto) 0 Nucleated RBCs # 0.0 Cardiac Studies: No Data to Display
--- NOTE | 2021-02-13 09:50 | ANES.PROC ---
Anesthesia Procedures Procedure/Date: 02/13/21 Epidural: Time Out Performed: Yes Consents Signed: Procedure Consent Consent: requested by attending/covering physician, from patient, risks and benefits reviewed and patient agrees to proceed Lumbar Level: L3-L4 Epidural position: sitting Epidural procedure: sterile prep of area, 1% lidocaine to numb the area, 18 g needle, negative for paresthesia passed, neg for paresthesia, test dose given, 1.5% xylocaine 1:200k epi (5 cc), 0.2% Ropivacaine bolus ml (5 cc), placed PCEA, no systemic response, sterile dressing applied, L.U.D. no apparent complications and 0.2% Ropiavacaine @ mls/hr (10) Additional Comments: BRIAN at 5 cm, threaded to 11 cm. Mild - mod Bleeding from needle insertion site leaking around catheter. Sponge applied
[2021-02-13] MEDS: oxytocin 30 UNIT/500 ML BAG 600 UNIT IV (19:20)
--- NOTE | 2021-02-13 19:34 | PM.DELIVERY ---
Delivery Note: Date of delivery: February 13, 2021 Pre-Delivery Course: The patient had routine care at [facility]. There were no complications during the . Delivery: This is a 25-year-old at 40 weeks 1 day gestation who presented to labor and delivery for an elective postdate induction. The patient cervix was favorable and she received Pitocin. She got an epidural for pain management. She underwent artificial rupture of membranes with clear fluid. Shortly thereafter she had a normal spontaneous vaginal delivery of a viable female weight 3790 g, 8 pounds 6 ounces, Apgars 8 and 9 over an intact perineum. The infant was suctioned at delivery and placed on the mother's chest. The cord was clamped and cut. The placenta was delivered grossly intact and normal to inspection. There was a small second-degree perineal laceration that was sutured using 3-0 chromic. Mother and were doing well after delivery. Estimated blood loss 75 mL A&P Assessment and plan (1) Normal spontaneous vaginal delivery: Status: Acute Coding Level of Care Code Acute Mulling Machine Operator for Chg Fwd Diagnoses Normal spontaneous vaginal delivery O80
[2021-02-13] MEDS: ibuprofen 800 mg tablet PO (22:00)
[2021-02-13] MEDS: benzocaine-menthol 78 gm Canister 1 SPRAY TOPICAL (22:00)
[2021-02-13] MEDS: lanolin oint 7 gm 1 APPLIC TOPICAL (22:00)
[2021-02-14] VITALS (8 sets, daily range): BP systolic 105–120; BP diastolic 56–77; PULSE 80–90; RESP 16; TEMP 35.6–36.2
[2021-02-14] MEDS: acetaminophen 325 mg Tablet 650 MG PO (02:44)
--- NOTE | 2021-02-14 08:01 | PC.NURSE ---
note This mom is hand expressing until baby is allowed to feed at the breast. She has done well and did not have questions about expressing. Provided literature on hand expression and storage of breastmilk.
[2021-02-14 08:18] LABS: Hematocrit 29.3 % (37.0-47.0); Hemoglobin 9.2 g/dL (11.5-15.3); Mean Corpuscular HGB Conc 31.4 g/dL (30.0-36.0); Mean Corpuscular Hemoglobin 23.5 pg (28.0-34.0); Mean Corpuscular Volume 74.9 fL (81-99); Mean Platelet Volume 11.5 fL (7.4-10.4); Platelet Count 200 10^3/cmm (130-400); Red Blood Count 3.91 10^6/uL (4.1-5.3); Red Cell Distribution Width 13.4 % (12.1-15.1); White Blood Count 17.4 10^3/uL (4.0-10.0)
[2021-02-14] MEDS: prenatal vitamin Capsule 1 CAP PO (09:04)
[2021-02-14] MEDS: ibuprofen 800 mg tablet PO ×3 (09:04→20:47)
[2021-02-14] MEDS: docusate sodium 100 mg Capsule PO ×2 (09:04→17:18)
--- NOTE | 2021-02-14 12:33 | PM.PN ---
Subjective Subjective: Interval history: Doing well. Average vaginal bleeding. Ambulating, tolerating a regular diet, not complaining of pain Vitals/I&O/Wt Last Vital Signs Temp 96.4 F L 02/14/21 10:59 Pulse 89 02/14/21 10:59 Resp 17 02/13/21 20:34 BP 120/77 02/14/21 10:59 Pulse Ox 99 02/13/21 09:34 02/13/21 02/14/21 02/14/21 22:59 06:59 14:59 Intake Total 100 / 483.666 Output Total 1325 / 1325 Balance -1225 / -841.334 Weight last 48 hrs Weight 68.946 kg Physical Exam Const: COMMON NORMALS: no acute distress GENERAL APPEARANCE: cooperative and comfortable HENMT: COMMON NORMALS: normocephalic and atraumatic HEAD & SCALP: normocephalic and atraumatic GI: COMMON NORMALS: Soft to palpation and non-tender PALPATION: Yes Soft to palpation and Yes Other GI palpation findings present (Fundus firm U- 3) Extremity: GENERAL: No calf tenderness and No edema Psych: COMMON NORMALS: mental status grossly normal Urinary Catheter Management^: Hollingsworth Latex: Cath Placed During This Visit: yes Reason for Continuing Indwelling Catheter: Required Immobilization for Trauma or Surgery or Anesthesia Urinary Catheter Date of Insertion: 02/13/21 Urinary Catheter Time of Insertion: 10:15 Data : 02/14/21 08:00 A&P Assessment and plan (1) Normal spontaneous vaginal delivery: Doing well . The is having some feeding issues so we will continue to keep mom inpatient 1 more evening to work closely with nursing. Status: Acute Attestations Medical Necessity Statement*: Routine care Coding Level of Care Code Acute Selling Underwriter for Chg Fwd Diagnoses Normal spontaneous vaginal delivery O80
[2021-02-15] VITALS (7 sets, daily range): BP systolic 111–118; BP diastolic 69–78; PULSE 80–83; RESP 16; TEMP 36.1–36.6
[2021-02-15] MEDS: prenatal vitamin Capsule 1 CAP PO (09:47)
[2021-02-15] MEDS: ibuprofen 800 mg tablet PO (09:47)
[2021-02-15] MEDS: docusate sodium 100 mg Capsule PO (09:47)
--- NOTE | 2021-02-15 10:24 | PM.DCS ---
Discharge Providers Date of Admission: 02/13/21 05:50 Date of Discharge: February 15, 2021 Attending Provider at Admission: Violet Reid MD Attending Provider at Discharge: Violet Reid MD Diagnoses at Discharge Discharge Diagnosis (1) Normal spontaneous vaginal delivery: Status: Acute Reason for Visit Reason for Visit: IUP Hospital Course Hospital Course This is a 25-year-old G3 now P3 who was admitted for an elective induction. She had a normal spontaneous vaginal delivery of a viable female infant. She and the infant did well after delivery. The had some initial trouble with breast-feeding but this resolved with time. Mother was ambulating, tolerating a regular diet, had essentially no pain and was ready for discharge home Physical Exam Narrative: EXAM NARRATIVE: Alert and oriented sitting up comfortably in bed. Abdomen soft and nontender. Fundus firm and U- 2. No calf tenderness, no edema Urinary Catheter Management^: Hollingsworth Latex: Cath Placed During This Visit: yes Reason for Continuing Indwelling Catheter: Required Immobilization for Trauma or Surgery or Anesthesia Urinary Catheter Date of Insertion: 02/13/21 Urinary Catheter Time of Insertion: 10:15 Discharge Data Vitals: Last Vital Signs Temp 97.9 F 02/15/21 09:48 Pulse 83 02/15/21 09:49 Resp 16 02/14/21 20:34 BP 118/69 02/15/21 09:49 Pulse Ox 99 02/13/21 09:34 Discharge Plan Discharge Patient Disposition: Home Condition: Stable Prescriptions: Continued 1 mg Tablet 1 tab PO DAILY RF: 0 Discharge Orders: Discharge Order (Routine); Ordered 02/15/21 Ordered By: Violet Reid Referrals: Violet Reid MD [Physician] - 03/15/21 2:00 pm (Your 4 week visit has been scheduled for 03/15/2021 at 2:[address] Reid.) Discharge Diet: Usual diet Discharge Activity: Limit activity as instructed Patient Instructions: Vitamins (By mouth), Depression (GEN), Pre-eclampsia and Eclampsia (DC), Bleeding (DC), OB Discharge Report, OB Food/Drug Interaction Guide, OB Care at Home, Opioid Safety, OB Vaginal Deliveries Discharge Attestations Time Spent in Discharge Care*: less than 30 min Quality Metrics Clinical Quality Measures During this hospital stay, did patient experience: None Coding Level of Care Code Acute Chg FW DC note Diagnoses Normal spontaneous vaginal delivery O80
== END 2021-02-15 11:30 | disposition home or self-care (01) | DRG 807 ==
PROVIDERS: Admitting Provider Family Medicine; Visit Provider Family Medicine
DX: O48.0 Post-term pregnancy (principal); Z37.0 Single live birth; O70.1 Second degree perineal laceration during delivery; Z3A.40 40 weeks gestation of pregnancy
CPT/HCPCS: 36415; 51702; 59025; 59409; 85025; 85027; 98960; J2795

== ENCOUNTER → 2021-03-23 13:47 | Outpatient (BNVA) | payer BC, MEDICAID, SELFPAY | PROVIDERS: Visit Provider Registered Nurse Neonatal Intensive Care | DX: Z20.822 Contact with and (suspected) exposure to COVID-19 (principal) | CPT/HCPCS: 87635 ==

== ENCOUNTER → 2022-09-12 13:12 | Outpatient (BNVA) | payer BC, SELFPAY | PROVIDERS: Visit Provider Registered Nurse Neonatal Intensive Care | DX: Z32.00 Encounter for pregnancy test, result unknown (principal) | CPT/HCPCS: 81025 ==

== ENCOUNTER 2022-10-11 13:46 | Outpatient (CLI) | payer BC, SELFPAY ==
--- NOTE | 2022-10-11 14:11 | US_ITS ---
WS: [id number] ULTRASOUND EARLY TECHNIQUE: Transabdominal sonography of the pelvis was performed. Followed by transvaginal sonography to better evaluate the uterus and ovaries. CLINICAL INFORMATION: UNSURE OF LMP/FIRST TRIMESTER LMP: ? Beta hCG: Unknown. COMPARISON: None. FINDINGS: UTERUS AND GESTATIONAL SAC Intrauterine gestations: Single live intrauterine gestation with gestational sac and yolk sac. Visualized pole. po le measures 2.2 cm Estimated gestational age: 9w0d Yolk sac: 0.3 cm. [place] rump length (CRL): 2.3 cm. heart motion: 171 BPM. Subchorionic hemorrhage: None. OVARIES Right ovary: Normal. Left ovary: LEFT ovarian hemorrhagic cyst or corpus luteum cyst measuring 2.0 x 2.0 x 1.2 cm FREE FLUID None. US/US OB <= 14 weeks fetus [id number] IMPRESSION: 1. Single live intrauterine with gestational sac and yolk sac. Visua lized pole measuring 2.3 cm 2. Estimated gestational age; 9w0d 3. Estimated delivery May 16, 2023 4. Normal RIGHT ovary. LEFT ovarian hemorrhagic cyst or corpus luteum cyst.
== END 2022-10-11 13:47 | disposition home or self-care (01) ==
PROVIDERS: PCP Family Medicine; Visit Provider Family Medicine
DX: Z36.87 Encounter for antenatal screening for uncertain dates (principal); Z3A.09 9 weeks gestation of pregnancy
CPT/HCPCS: 76801

== ENCOUNTER 2023-03-24 09:52 | Outpatient (CLI) | payer BC, MEDICAID, SELFPAY ==
[2023-03-24 10:03] VITALS: BP 109/65; PULSE 103
[2023-03-24 10:07] VITALS: RESP 18
[2023-03-24 10:08] VITALS: BMI 29.2
[2023-03-24 10:18] VITALS: BP 105/62; PULSE 91
[2023-03-24 10:33] VITALS: BP 106/63; PULSE 91
[2023-03-24 10:40] VITALS: BP 104/61; PULSE 97
== END 2023-03-24 10:45 | disposition home or self-care (01) ==
LOC: OPOB 09:55 → OBGYN 09:56
PROVIDERS: PCP Family Medicine; Visit Provider Family Medicine
DX: O24.419 Gestational diabetes mellitus in pregnancy, unspecified control (principal); Z3A.00 Weeks of gestation of pregnancy not specified
CPT/HCPCS: 59025

== ENCOUNTER 2023-03-27 08:45 | Outpatient (CLI) | payer BC, MEDICAID, SELFPAY ==
[2023-03-27 08:45] VITALS: RESP 18; BMI 29.6
== END 2023-03-27 09:20 | disposition home or self-care (01) ==
LOC: OPOB 08:51 → OBGYN 08:52
PROVIDERS: PCP Family Medicine; Visit Provider Family Medicine
DX: O24.419 Gestational diabetes mellitus in pregnancy, unspecified control (principal); Z3A.00 Weeks of gestation of pregnancy not specified
CPT/HCPCS: 59025

== ENCOUNTER 2023-03-31 09:47 | Outpatient (CLI) | payer BC, MEDICAID, SELFPAY ==
[2023-03-31 09:57] VITALS: BP 112/64; PULSE 106
[2023-03-31 10:12] VITALS: BP 115/62; PULSE 99
== END 2023-03-31 10:19 | disposition home or self-care (01) ==
LOC: OPOB 09:51 → OBGYN 09:53
PROVIDERS: PCP Family Medicine; Visit Provider Family Medicine
DX: O24.419 Gestational diabetes mellitus in pregnancy, unspecified control (principal); Z3A.00 Weeks of gestation of pregnancy not specified
CPT/HCPCS: 59025

== ENCOUNTER 2023-04-03 10:35 | Outpatient (CLI) | payer BC, MEDICAID, SELFPAY ==
[2023-04-03 10:35] VITALS: BMI 29.6
[2023-04-03 10:42] VITALS: BP 117/64; PULSE 113
[2023-04-03 10:57] VITALS: BP 113/63; PULSE 112
[2023-04-03 11:41] VITALS: BP 113/63; PULSE 112; RESP 18
== END 2023-04-03 11:08 | disposition home or self-care (01) ==
LOC: OPOB 10:37 → OBGYN 10:38
PROVIDERS: PCP Family Medicine; Visit Provider Family Medicine
DX: O24.419 Gestational diabetes mellitus in pregnancy, unspecified control (principal); Z3A.00 Weeks of gestation of pregnancy not specified
CPT/HCPCS: 59025

== ENCOUNTER 2023-04-10 09:05 | Outpatient (CLI) | payer BC, MEDICAID, SELFPAY ==
[2023-04-10 09:05] VITALS: RESP 17
[2023-04-10 09:29] VITALS: BP 118/65; PULSE 97
[2023-04-10 09:41] VITALS: BP 118/65; PULSE 97
== END 2023-04-10 09:41 | disposition home or self-care (01) ==
LOC: OPOB 09:09 → OBGYN 09:13
PROVIDERS: PCP Family Medicine; Visit Provider Family Medicine
DX: O24.419 Gestational diabetes mellitus in pregnancy, unspecified control (principal); Z3A.00 Weeks of gestation of pregnancy not specified
CPT/HCPCS: 59025; 99211

== ENCOUNTER 2023-04-17 09:47 | Outpatient (CLI) | payer BC, MEDICAID, SELFPAY ==
[2023-04-17 09:45] VITALS: RESP 17; BMI 30.2
[2023-04-17 10:21] VITALS: BP 110/65; PULSE 109
[2023-04-17 10:22] VITALS: BP 110/65; PULSE 109
== END 2023-04-17 10:22 | disposition home or self-care (01) ==
LOC: OPOB 09:47 → OBGYN 09:48
PROVIDERS: PCP Family Medicine; Visit Provider Family Medicine
DX: O24.419 Gestational diabetes mellitus in pregnancy, unspecified control (principal); Z3A.00 Weeks of gestation of pregnancy not specified
CPT/HCPCS: 59025; 99211

== ENCOUNTER 2023-04-24 14:14 | Outpatient (CLI) | payer BC, MEDICAID, SELFPAY ==
[2023-04-24 14:26] VITALS: BP 119/80; PULSE 122
[2023-04-24 14:28] VITALS: PULSE 119; O2SAT 98
[2023-04-24 14:33] VITALS: PULSE 105; O2SAT 98
[2023-04-24 14:38] VITALS: PULSE 93; O2SAT 97
[2023-04-24 14:46] VITALS: BMI 30.2
== END 2023-04-24 15:05 | disposition home or self-care (01) ==
LOC: OPOB 14:14 → OBGYN 14:15
PROVIDERS: PCP Family Medicine; Visit Provider Family Medicine
DX: O26.899 Other specified pregnancy related conditions, unspecified trimester (principal); Z3A.00 Weeks of gestation of pregnancy not specified
CPT/HCPCS: 59025

== ENCOUNTER 2023-05-12 17:38 | Inpatient (IN) | payer BC, MEDICAID, SELFPAY ==
[2023-05-12] VITALS (40 sets, daily range): BP systolic 107–147; BP diastolic 49–81; PULSE 80–104; RESP 16; TEMP 36–36.1; O2SAT 98–100; BMI 30.9
[2023-05-12 16:45] LABS: Basophils % 0.4 %; Eosinophils # 0.1 10^3/uL (0.0-0.8); Eosinophils % 0.9 %; Hematocrit 25.7 % (36-47); Lymphocytes # 2.7 10^3/uL (0.8-4.8); Lymphocytes % 26.1 %; Mean Platelet Volume 10.6 fL (7.4-10.4); Monocytes # 0.6 10^3/uL (0.2-0.9); Monocytes % 5.4 %; Neutrophils # 6.84 10^3/uL (1.8-7.7); Neutrophils % 66.2 %; Nucleated Red Blood Cells % 0.3 %; Platelet Count 234 10^3/cmm (157-399); Red Blood Count 3.67 10^6/uL (3.85-5.65); Red Cell Distribution Width 15.7 % (12.1-15.1); White Blood Count 10.32 10^3/uL (3.29-11.43)
[2023-05-12] MEDS: oxytocin 30 UNIT/500 ML BAG IV (16:51)
[2023-05-12] MEDS: lactated ringers 1,000 ML 125 ML IV (16:52)
[2023-05-12] MEDS: dextrose 5%-lactated ringers 1,000 ML 999 ML IV (21:04)
[2023-05-12] MEDS: ROPivacaine syringe 100 MG/50 ML SYRINGE 10 MG EPIDURAL (21:57)
--- NOTE | 2023-05-12 22:01 | P.ANESASSM_ITS ---
Pre-Anesthetic Assessment Height/Weight: Height 1.55 m Weight 74.389 kg Temp Pulse Resp BP Pulse Ox O2 Del Method 96.8 F L 82 16 116/69 99 Room Air 05/12/23 16:49 05/12/23 21:56 05/12/23 16:14 05/12/23 21:56 05/12/23 21:50 05/12/23 16:30 Preop Diagnosis: iup Labor Epidural Familial anesthetic complications: None Was Beta Tyler taken within 24 hours: N/A Was Clonidine taken within 24 hours: N/A Last intake: 1400 05/12/23 meal clears - current Social No alcohol and No tobacco Exam alert, oriented x 3 and clear to auscultation bilaterally Airway Submandibular: within normal limits Cervical ROM: within normal limits Mallampati: Class II Dentition: full History/ROS No significant history except as noted Pulmonary None reported CV/HEM Anemia None reported Hepatic None reported GI Gastroesophageal Reflux Disease Metabolic Diabetes Mellitus Gestational Musc/skel None reported Neuropsych None reported Anesthetic Plan ASA status: 2 Anesthesia: Regional (specify below) Other: Labor Epidural Medications/Allergies Home Medications Medication Instructions Recorded Confirmed Last Taken Type [id number] 1 mg 1 tab PO DAILY 01/09/21 09/12/22 05/11/23 20:00 History tablet metformin 03/27/23 05/10/23 20:00 History Allergies Allergy/AdvReac Type Severity Reaction Status Date / Time No Known Allergies Allergy Verified 04/24/23 15:12 Current Medications Generic Name Dose Route Start Last Admin Trade Name Freq PRN Reason Stop Dose Admin Lactated Ringer's 1,000 mls @ 999 mls/hr 05/12/23 16:14 05/12/23 16:52 Lactated Ringers IV 125 mls/hr .Q1H1M PRN Administration Per L&D Rescitation Protocol Oxytocin 30 unit in 500 mls @ 1 mls/hr 05/12/23 16:15 05/12/23 19:30 Pitocin IV 20 milliunit/min .Q24H DELROY 20 mls/hr Titration Protocol 1 MILLIUNIT/MIN Dextrose/Lactated Ringer's 1,000 mls @ 125 mls/hr 05/12/23 16:15 05/12/23 21: 58 Dextrose 5%-Lactated Ringers IV 125 mls/hr .Q8H DELROY Infusion Ropivacaine 100 mg in 50 mls @ 10 mls/hr 05/12/23 20:45 05/12/23 21:57 Naropin Syringe EPIDURAL 10 mls/hr .Q5H DELROY Administration PFSH Anesthesia Medical History (Updated 09/19/22 @ 09:45 by Mackenzie Weaver) Wasp sting Social History Smoking and tobacco status: never smoked Alcohol intake: never Substance/Drug Use: never Female Reproductive History : 4 Data Anesthesia 05/12/23 16:30 Short CBC 05/12/23 Range/Units 16:30 WBC 10.32 (3.29-11.43) 10^3/uL Hgb 7.70 L (11.27-16.99) g/dL Hct 25.7 L (36-47) % MCV 70.0 L (85-98) fl Plt Count 234 (157-399) 10^3/cmm Neut % (Auto) 66.2 % Neut # (Auto) 6.84 (1.8-7.7) 10^3/uL Cardiac Studies: No Data to Display Anesthesia Procedures Epidural Time Out Performed: Yes Consent: from patient, risks and benefits reviewed and patient agrees to proceed Lumbar Level: L3-L4 Epidural position: sitting Epidural procedure: sterile prep of area, 1% lidocaine to numb the area, negative for paresthesia passed, test dose given, 1.5% xylocaine 1:200k epi, placed PCEA, no systemic response, sterile dressing applied, L.U.D. no apparent complications and 0.2% Ropiavacaine @ mls/hr (10) Additional Comments: BRIAN @ 5cm on first attempt catheter threaded with ease to 12cm. - heme, - CSF 100mcg Fentanyl given via epidural patient reports relief and legs feeling heavy total procedure time 25 min.
[2023-05-12 23:39] LABS: Glucose Point of Care 102 mg/dL (70-110)
[2023-05-13] VITALS (33 sets, daily range): BP systolic 109–152; BP diastolic 60–89; PULSE 73–153; RESP 16–18; TEMP 36.3–37.4; O2SAT 95–100
[2023-05-13] MEDS: miSOPROStol 200 mcg Tablet 800 MCG PR (01:40)
[2023-05-13] MEDS: oxytocin 30 UNIT/500 ML BAG 600 UNIT IV (01:46)
--- NOTE | 2023-05-13 01:51 | PM.DELIVERY ---
Delivery Note: Date of delivery: May 13, 2023 Pre-delivery diagnoses: IUP at 39 weeks 4 days gestation Gestational diabetes mellitus on metformin Desired permanent surgical sterilization Procedure: Normal spontaneous vaginal delivery Estimated blood loss (mL): 150 Pre-Delivery Course: The patient had routine care at [facility]. She is blood type A+ antibody negative, hepatitis B nonreactive, hepatitis C nonreactive, HIV nonreactive, rubella immune, GC chlamydia negative, RPR nonreactive, UDS negative, she failed a 3-hour glucose tolerance test and was placed on metformin for diabetes control, she was GBS negative. Delivery: This is a 27-year-old G4, P3 at 39 weeks 3 days gestation who presented for induction secondary to gestational diabetes mellitus on metformin. Her cervix was favorable and she was started on Pitocin. She underwent artificial rupture of membranes with a copious amount of clear fluid. Rupture of membranes was approximately 9 hours prior to delivery. She later received an epidural for pain management. She had a normal spontaneous vaginal delivery of a viable female infant weight 4110 g, 9 pounds 1 ounce, Apgars 8 and 9 over an intact perineum. The infant was suctioned at delivery and placed on the mother's chest. The cord was clamped and cut. The placenta was delivered grossly intact and normal to inspection. There was a small second-degree laceration that was sutured using 3-0 chromic. Mother did not have a significant amount of bleeding but due to her low starting hemoglobin of 7.7 I prophylactically gave her 800 mcg of Cytotec rectally. Thus far her bleeding has been light. EBL 150 mL. A&P Assessment and plan (1) Normal spontaneous vaginal delivery: Routine care (2) Consultation for sterilization: Patient still desires to undergo permanent surgical sterilization. Her procedure has been scheduled for noon. We will allow her to eat quickly and then be n.p.o. for 8 hours. Coding Level of Care Code Acute Code for Chg Fwd Diagnoses Normal spontaneous vaginal delivery O80 Consultation for sterilization Z30.09
[2023-05-13] MEDS: dextrose 5%-lactated ringers 1,000 ML 125 ML IV (01:57)
[2023-05-13] MEDS: HYDROcodone-acetaminophen 5-325 mg Tablet PO ×2 (05:11→23:42)
[2023-05-13] MEDS: benzocaine-menthol 78 gm Canister 1 SPRAY TOPICAL (05:11)
[2023-05-13] MEDS: lanolin oint 7 gm 1 APPLIC TOPICAL (05:12)
[2023-05-13] MEDS: ibuprofen 800 mg tablet PO ×3 (09:06→20:29)
[2023-05-13] MEDS: prenatal vitamin Capsule 1 CAP PO (09:06)
[2023-05-13] MEDS: docusate sodium 100 mg Capsule PO ×2 (09:07→20:29)
[2023-05-13 10:52] LABS: Basophils # 0.1 10^3/uL (0.0-0.1); Basophils % 0.3 %; Eosinophils # 0.1 10^3/uL (0.0-0.8); Eosinophils % 0.3 %; Lymphocytes % 14.9 %; Mean Corpuscular Hemoglobin 20.3 pg (27-33); Mean Corpuscular Volume 70.2 fl (85-98); Mean Platelet Volume 11.2 fL (7.4-10.4); Neutrophils # 15.58 10^3/uL (1.8-7.7); Neutrophils % 78.8 %; Nucleated Red Blood Cells % 0.2 %; Platelet Count 229 10^3/cmm (157-399); Red Blood Count 4.13 10^6/uL (3.85-5.65); Red Cell Distribution Width 15.5 % (12.1-15.1); White Blood Count 19.75 10^3/uL (3.29-11.43)
[2023-05-13] MEDS: lactated ringers 1,000 ML 999 ML IV (11:33)
[2023-05-13] MEDS: famotidine 20 mg/2 mL INJ IVP (11:45)
[2023-05-13] MEDS: citric acid-sodium citrate 30 mL UDC PO (11:45)
[2023-05-13] MEDS: metoclopramide 5 mg/mL SDV 2 mL 10 MG IVP (11:45)
--- NOTE | 2023-05-13 11:57 | P.ANESUD_ITS ---
Pre-Anesthetic Update Pre-Anesthetic Assessment: Date of Surgery/Procedure: 05/13/23 Preop Monse gnosis: Undesired fertility Proposed Procedure: Operation Date: 05/13/23 12:10 Proposed Procedures p Post Bilateral Tubal Ligation(Bilateral) - Violet Reid MD Any changes to Pre-Anesthetic Assessment?: No Last Intake: 0200 Last Intake: 11:58 Labs Last 48hrs: Short CBC 05/12/23 05/13/23 Range/Units 16:30 10:35 WBC 10.32 19.75 H (3.29-11.43) 10^ 3/uL Hgb 7.70 L 8.40 L (11.27-16.99) g/ dL Hct 25.7 L 29.0 L (36-47) % MCV 70.0 L 70.2 L (85-98) fl Plt Count 234 229 (157-399) 10^3/c mm Neut % (Auto) 66.2 78.8 % Neut # (Auto) 6.84 15.58 H (1.8-7.7) 10^3/u L Vitals: Temperature 99.1 F 05/13/23 06:45 Temperature Source Oral 05/13/23 06:45 Pulse Rate 79 05/13/23 06:45 Pulse Rhythm Regular 05/12/23 16:30 Pulse Strength 3+ Normal 05/13/23 08:00 Respiratory Rate 18 05/13/23 06:45 Respiratory Effort Spontaneous, Non- Labored 05/13/23 08:00 Respiratory Depth Normal 05/13/23 08:00 Respiratory Patter n Normal 05/13/23 08:00 Blood Pressure 126/78 05/13/23 06:45 Blood Pressure Heike n 94 05/13/23 06:45 Blood Pressure Pos ition Semi Fowlers 05/13/23 06:45 Pulse Oximetry 99 05/12/23 21:50 Oxygen Delivery Me thod Room Air 05/12/23 16:30 Exam: Pre-Anes Outpt Exam: alert, oriented x 3, clear to auscultation b ilaterally and regular rate & rhythm Cardiac Studies: No Data to Display
--- NOTE | 2023-05-13 12:16 | PM.OPHPUD ---
Labor & Delivery H&P Update Date of Procedure: May 13, 2023 Date H&P Performed: 05/08/23 Admission Diagnosis: IUP at [id number] Gestational diabetes mellitus Desired permanent surgical sterilization Preop diagnosis: Undesired fertility Primary indication for procedure: Induction of labor and delivery bilateral tubal ligation Planned procedure: Operation Date: 05/13/23 12:10 Proposed Procedures p Post Bilateral Tubal Ligation(Bilateral) - Violet Reid MD
[2023-05-13] MEDS: ceFAZolin 2,000 MG in sodium chloride 0.9% (plus) 50 ML 100 MG IV (12:45)
[2023-05-13] MEDS: BUPivacaine 0.5% INJ 10 mL INJECTION (13:20)
--- NOTE | 2023-05-13 13:22 | P.OP_ITS ---
Operative Report Date of procedure: May 13, 2023 Pre-op diagnosis: Desired permanent surgical sterilization Post-op diagnosis: Same Procedure done: bilateral tubal ligation Pathology: Segments of right and left fallopian tubes Surgeon: Violet Reid MD Anesthesia: General Estimated blood loss (mL): 2 IV fluids (mL): 500 Complications: None Procedure: After informed consent the patient was taken to the OR where general anesthesia was administered. She was prepped and draped in normal sterile fashion in dorsal supine position. A curvilinear infraumbilical incision was made with a 15 blade and carried through to the underlying layer of fascia bluntly using a hemostat. The fascia was grasped with Allis clamps and entered sharply using the Metzenbaums. The peritoneum was then entered bluntly using the hemostat. The left fallopian tube was grasped with a [place] and brought into the opera tive field. It was very edematous. A distal portion of the tube was ligated and excised. Tubal ostia were identified. A segment of the tube was sent to pathology. Cut portions of the tube were coagulated using the Bovie. The right tube was then grasped with a Pranay and brought into the operative field. A distal portion of the tube was ligated and excised. Tubal ostia were visualized. Segment of the tube was sent to pathology. The cut portions of the tube were coagulated using the Bovie and then returned to the abdomen. The peritoneum and fascia was then reapproximated using 0 Vicryl in a running fashion. The skin was then reapproximated using 4-0 Vicryl in a running fashion. Steri-Strips and a pressure bandage were applied and patient went to recovery in good condition Sponge instrument and needle counts were correct.
--- NOTE | 2023-05-13 15:08 | ANE.PACU2 ---
Inpatient post-anesthesia follow up: Airway intact: Yes Vital signs: Temperature 97.4 F Pulse Rate 78 Respiratory Rate 16 Blood Pressure 136/82 Pulse Oximetry 97 Oxygen Delivery Me thod Room Air Oxygen Flow Rate 2 Fraction of Inspir ed Oxygen Hydration adequate: Yes Nausea and vomiting: No Pain level: 1 Mental status: Baseline
--- NOTE | 2023-05-13 15:16 | PC.NURSE ---
Pt transferred to OB OR 1 via bed at 1225. Room time 1223
[2023-05-14 04:26] VITALS: BP 122/68; PULSE 60; RESP 18; TEMP 37.2
[2023-05-14] MEDS: docusate sodium 100 mg Capsule PO (09:16)
[2023-05-14] MEDS: prenatal vitamin Capsule 1 CAP PO (09:16)
[2023-05-14] MEDS: ibuprofen 800 mg tablet PO (09:16)
[2023-05-14 11:30] VITALS: BP 115/69; PULSE 73; RESP 16; TEMP 36.4
--- NOTE | 2023-05-14 12:23 | PM.DCS ---
Discharge Providers Date of Admission: 05/12/23 17:38 Date of Discharge: May 14, 2023 Attending Provider at Admission: Violet Reid MD Attending Provider at Discharge: Violet Reid MD Primary Care Provider: Violet Reid MD Diagnoses at Discharge Discharge Diagnosis (1) Normal spontaneous vaginal delivery: Status: Acute (2) Consultation for sterilization: Status: Acute Reason for Visit Reason for Visit: INDUCTION FOR GESTIONAL DIABETIC Hospital Course Hospital Course This is a 27-year-old G4 now P4 who was admitted for induction. She had a normal spontaneous vaginal delivery of a viable female infant at 39 weeks 4 days gestation. Her was complicated by gestational diabetes mellitus on metformin. Mother and infant did well after delivery. Mother underwent a bilateral tubal ligation on day #0. She is tolerating a regular diet has normal vaginal bleeding and good pain control. Physical Exam Narrative: Alert and oriented, sitting up in bed, heart regular rate and rhythm, lungs clear to auscultation bilaterally, abdomen is soft with appropriate postoperative tenderness, fundus is firm, incision has Steri-Strips in place and is clean dry and intact. Extremities have slight edema but no calf tenderness. Urinary Catheter Management: Hollingsworth: Cath Placed During This Visit: yes, but has since been removed by the nurse Reason for Continuing Indwelling Catheter: Required Immobilization for Trauma or Surgery or Anesthesia Urinary Catheter Date of Insertion: 05/13/23 Urinary Catheter Time of Insertion: 22:34 Date Urinary Catheter Removed: 05/13/23 Time Urinary Catheter Discontinued: 01:17 Discharge Data Studies Completed and Pending Pending at discharge Category Date Time Status Pathology: Surgical [PTH] Routine Pth 05/13/23 14:31 Received Laboratory Results WBC 19.75 10^3/uL (3.29-11.43) H 05/13/23 10:35 RBC 4.13 10^6/uL (3.85-5.65) 05/13/23 10:35 Hgb 8.40 g/dL (11.27-16.99) L 05/13/23 10:35 Hct 29.0 % (36-47) L 05/13/23 10:35 MCV 70.2 fl (85-98) L 05/13/23 10:35 MCH 20.3 pg (27-33) L 05/13/23 10:35 MCHC 29.0 g/dL (30-55) L 05/13/23 10:35 RDW 15.5 % (12.1-15.1) H 05/13/23 10:35 Plt Count 229 10^3/cmm (157-399) 05/13/23 10:35 MPV 11.2 fL (7.4-10.4) H 05/13/23 10:35 Neut % (Auto) 78.8 % 05/13/23 10:35 Lymph % (Auto) 14.9 % 05/13/23 10:35 [place] % (Auto) 5.0 % 05/13/23 10:35 Eos % (Auto) 0.3 % 05/13/23 10:35 Baso % (Auto) 0.3 % 05/13/23 10:35 Neut # (Auto) 15.58 10^3/uL (1.8-7.7) H 05/13/23 10:35 Lymph # (Auto) 3.0 10^3/uL (0.8-4.8) 05/13/23 10:35 [place] # (Auto) 1.0 10^3/uL (0.2-0.9) H 05/13/23 10:35 Eos # (Auto) 0.1 10^3/uL (0.0-0.8) 05/13/23 10:35 Baso # (Auto) 0.1 10^3/uL (0.0-0.1) 05/13/23 10:35 Nucleated RBC % (auto) 0.2 % 05/13/23 10:35 Nucleated RBCs # 0.0 /100WBC 05/13/23 10:35 POC Glucose 102 mg/dL (70-110) 05/12/23 23:36 Vitals Last Vital Signs Temp 97.6 F 05/14/23 11:30 Pulse 73 05/14/23 11:30 Resp 16 05/14/23 11:30 BP 115/69 05/14/23 11:30 Pulse Ox 95 05/13/23 20:34 O2 Del Method Room Air 05/13/23 20:34 O2 Flow Rate 2 05/13/23 13:40 Discharge Plan Discharge Patient Disposition: Home Condition: Stable Prescriptions: New ibuprofen 800 mg Tablet 800 mg PO TID PRN (Reason: Abdominal Discomfort) Qty: 30 0RF hydrocodone-acetaminophen 5-325 mg Tablet 1 - 2 tab PO Q6H PRN (Reason: Moderate To Severe Pain) Qty: 6 0RF Continued suewbqdz-[id number]-Eb-FA 1 mg Tablet 1 tab PO DAILY Discontinued metformin 500 mg PO DAILY Discharge Orders: Discharge Order (Routine); Ordered 05/14/23 Ordered By: Violet Reid Referrals: Violet Reid MD [Primary Care Provider] - 4-7 days (friday) Discharge Diet: Usual diet Discharge Activity: Limit activity as instructed Patient Instructions: Depression (DC), Bleeding (DC), Preeclampsia and Eclampsia After Delivery (GEN), Salpingectomy (GEN), Hemorrhage (DC), OB Discharge Report, OB Food/Drug Interaction Guide, OB Care at Home, Opioid Safety, OB Home Care, OB Vaginal Deliveries Discharge Attestations Time Spent in Discharge Care*: less than 30 min Quality Metrics Clinical Quality Measures [ No reported AMI, CVA or VTE this stay] Coding Level of Care Code Acute Code for Chg Fwd Diagnoses Normal spontaneous vaginal delivery O80 Consultation for sterilization Z30.09
[2023-05-14 14:10] VITALS: BP 128/82; PULSE 82; RESP 16; TEMP 36.6; O2SAT 98
== END 2023-05-14 14:20 | disposition home or self-care (01) | DRG 798 ==
LOC: OBGYN 17:40 → OPOB 05-13 07:51
PROVIDERS: Admitting Provider Family Medicine; PCP Family Medicine; Visit Provider Family Medicine
PROC: 10E0XZZ Delivery of Products of Conception, External Approach (ICD-10-PCS; CPT 58605; principal; 2023-05-13 12:00)
DX: O24.425 Gestational diabetes mellitus in childbirth, controlled by oral hypoglycemic drugs (principal); Z37.0 Single live birth; O70.1 Second degree perineal laceration during delivery; Z3A.39 39 weeks gestation of pregnancy; Z30.2 Encounter for sterilization
CPT/HCPCS: 36416; 51702; 58605; 59025; 59409; 82962; 85025; 88302; 96374; 96376; 98960; 99211; J0690; J1100; J2590; J2704; J2710; J2765; J2795; J3010; J3490; J7120; J7121